=== PATIENT | female | born 1940 | race Caucasian/White ===

== ENCOUNTER 2017-09-22 12:36 | Emergency (ER) | payer OTHER ==
[2017-09-22 13:13] LABS: BASO % 0.4 % (0.0-1.0); EOS # 0.1 10^3/uL (0.0-0.50); EOS % 1.5 % (0.0-3.0); HEMATOCRIT 42.4 % (36.0-47.0); HEMOGLOBIN 14.5 g/dl (12.0-15.5); LYMPH # 1.8 10^3/uL (1.5-4.5); LYMPH % 22.6 % (24.0-44.0); MEAN CORPUSCULAR HGB CONC 34.2 g/dl (32.0-36.5); MEAN CORPUSCULAR VOLUME 90.8 fl (80.0-96.0); MONO # 0.6 10^3/uL (0.0-0.8); MONO % 7.4 % (0.0-5.0); NEUTROPHILS # 5.4 10^3/uL (1.8-7.7); NEUTROPHILS % 67.1 % (36.0-66.0); PLATELET COUNT, AUTOMATED 192 10^3/uL (150-450); RED BLOOD COUNT 4.67 10^6/uL (4.00-5.40); RED CELL DISTRIBUTION WIDTH 13.3 % (11.5-14.5); WHITE BLOOD COUNT 8.1 10^3/uL (4.0-10.0)
[2017-09-22] MEDS: ASPIRIN 81 MG CHEW TABLET PO (13:19)
[2017-09-22 13:33] LABS: ALBUMIN 4.3 GM/DL (3.2-5.2); ALBUMIN/GLOBULIN RATIO 1.05 (1.00-1.93); ALKALINE PHOSPHATASE 84 U/L (45-117); ALT/SGPT 55 U/L (12-78); ANION GAP 5 MEQ/L (8-16); AST/SGOT 46 U/L (7-37); BILIRUBIN,DIRECT 0.2 MG/DL (0.0-0.2); BILIRUBIN,TOTAL 0.7 MG/DL (0.2-1.0); BLOOD UREA NITROGEN 13 MG/DL (7-18); CALCIUM LEVEL 9.4 MG/DL (8.8-10.2); CARBON DIOXIDE LEVEL 32 MEQ/L (21-32); CHLORIDE LEVEL 103 MEQ/L (98-107); CPK CREATINE PHOSPHOKINASE 55 U/L (26-192); CREATININE FOR GFR 0.75 MG/DL (0.55-1.30); GLOMERULAR FILTRATION RATE > 60.0 (>39); GLUCOSE, FASTING 94 MG/DL (70-100); POTASSIUM SERUM 4.5 MEQ/L (3.5-5.1); SODIUM LEVEL 140 MEQ/L (136-145); TOTAL PROTEIN 8.4 GM/DL (6.4-8.2); TROPONIN I < 0.02 NG/ML (< 0.10)
[2017-09-22 13:34] LABS: CK-MB VALUE MASS 1.2 NG/ML (<3.6); MB/CK RELATIVE INDEX 2.18 (< OR =4); NT-PRO BNP 605 PG/ML (<450)
[2017-09-22 13:51] LABS: INR 1.97; PROTHROMBIN TIME 23.1 SECONDS (12.4-14.5)
[2017-09-22 14:35] LABS: DIGOXIN LEVEL 1.8 NG/ML (0.5-2.0)
[2017-09-22 17:01] LABS: CK-MB VALUE MASS < 1.0 NG/ML (<3.6); CPK CREATINE PHOSPHOKINASE 54 U/L (26-192); MB/CK RELATIVE INDEX 1.85 (< OR =4); TROPONIN I < 0.02 NG/ML (< 0.10)
== END 2017-09-22 18:00 | disposition home or self-care (01) ==
LOC: M ED 12:36
DX: R07.89 Other chest pain (principal); R06.02 Shortness of breath; I10 Essential (primary) hypertension; I48.91 Unspecified atrial fibrillation; E78.5 Hyperlipidemia, unspecified; K21.9 Gastro-esophageal reflux disease without esophagitis; Z95.1 Presence of aortocoronary bypass graft; Z88.8 Allergy status to other drugs, medicaments and biological substances; Z79.899 Other long term (current) drug therapy; Z79.01 Long term (current) use of anticoagulants
CPT/HCPCS: 71045

== ENCOUNTER 2018-08-09 13:45 | Observation (INO) | payer MEDICARE, OTHER ==
[~2018-08-09] VITALS: Ht 157.5 cm; Wt 59.1 kg
[~2018-08-09 13:45] MED LIST: /WARF2TA; ACET650S; ACET65TA; ALDA25TA2; ATEN100T PO; ATEN25TA; CALCCHW12; CHOL4POW; COUMADIN; DIGO0.25 PO; FAMO10TA5; FURO20TA2; KLOR10TA; LANO0.1211; LASI20TA; LISI40TA; MILKSUS; PAIN325T; PANT40TA3 PO; PEPC20TA2; POTA10CA32 PO; RANI300T PO; SOTA160T; SPIR-10; SPIRPOW; THERGRAN; VALS1TAB47; WARF-20
[2018-08-09] MEDS ORDERED: SPIR-10 PO (14:03)
[2018-08-09] MEDS ORDERED: COUM6TAB PO ×3 (14:03→14:10)
[2018-08-09] MEDS ORDERED: [UNRECOGNIZED DRUG - CODE] TOP (14:10)
[2018-08-09] MEDS ORDERED: PENI500T PO (14:10)
[2018-08-09] MEDS ORDERED: VITA200016 PO (14:10)
[2018-08-09] MEDS ORDERED: CHOL4PKT PO (14:10)
[2018-08-09] MEDS ORDERED: LOSA100T50 PO (14:10)
[2018-08-09 14:35] LABS: BASO % 0.3 % (0.0-1.0); EOS # 0.1 10^3/uL (0.0-0.50); EOS % 0.6 % (0.0-3.0); HEMATOCRIT 39.3 % (36.0-47.0); HEMOGLOBIN 13.4 g/dl (12.0-15.5); LYMPH # 1.8 10^3/uL (1.5-4.5); LYMPH % 19.8 % (24.0-44.0); MEAN CORPUSCULAR HEMOGLOBIN 30.4 pg (27.0-33.0); MEAN CORPUSCULAR HGB CONC 34.1 g/dl (32.0-36.5); MEAN CORPUSCULAR VOLUME 89.1 fl (80.0-96.0); MONO # 0.9 10^3/uL (0.0-0.8); MONO % 9.6 % (0.0-5.0); NEUTROPHILS # 6.2 10^3/uL (1.8-7.7); PLATELET COUNT, AUTOMATED 200 10^3/uL (150-450); RED BLOOD COUNT 4.41 10^6/uL (4.00-5.40); WHITE BLOOD COUNT 8.9 10^3/uL (4.0-10.0)
--- NOTE | 2018-08-09 14:42 | REP ---
Clinical: Acute chest pain . Comparison: 09/22/2017 . Findings: The mediastinum and cardiac silhouette are stable and within normal limits for portable technique. The lung hsieh demonstrate chronic-appearing changes without acute consolidation, effusion, or pneumothorax. Skeletal structures are intact. Impression: No acute cardiopulmonary process appreciated. Electronically Signed by Ricardo Pelayo MD 08/09/2018 02:33 P
[2018-08-09 14:47] LABS: INR 1.95; PROTHROMBIN TIME 22.6 SECONDS (12.1-14.4)
[2018-08-09] MEDS ORDERED: COUM1TAB14 PO ×2 (15:00)
[2018-08-09] MEDS ORDERED: VITA100066 PO (15:00)
[2018-08-09] MEDS ORDERED: CALC600T7 PO (15:00)
[2018-08-09] MEDS ORDERED: FURO40TA2 PO (15:00)
[2018-08-09] MEDS ORDERED: ACET-683 PO (15:00)
[2018-08-09] MEDS ORDERED: CENTCHW3 PO (15:00)
[2018-08-09] MEDS ORDERED: VITA100067 PO ×2 (15:00→15:05)
[2018-08-09] MEDS ORDERED: FIBE625T PO (15:01)
[2018-08-09] MEDS ORDERED: FIBE500T4 PO (15:01)
[2018-08-09 15:19] LABS: ALT/SGPT 52 U/L (12-78); BILIRUBIN,DIRECT 0.2 MG/DL (0.0-0.2); BILIRUBIN,TOTAL 0.6 MG/DL (0.2-1.0); BLOOD UREA NITROGEN 17 MG/DL (7-18); CALCIUM LEVEL 9.3 MG/DL (8.8-10.2); CARBON DIOXIDE LEVEL 27 MEQ/L (21-32); CHLORIDE LEVEL 104 MEQ/L (98-107); CPK CREATINE PHOSPHOKINASE 44 U/L (26-192); CREATININE FOR GFR 1.02 MG/DL (0.55-1.30); DIGOXIN LEVEL 1.8 NG/ML (0.5-2.0); GLOMERULAR FILTRATION RATE 55.9 (>39); GLUCOSE, FASTING 107 MG/DL (70-100); LIPASE 184 U/L (73-393); MAGNESIUM LEVEL 2.1 MG/DL (1.8-2.4); NT-PRO BNP 517 PG/ML (<450); POTASSIUM SERUM 4.9 MEQ/L (3.5-5.1); SODIUM LEVEL 138 MEQ/L (136-145); TOTAL PROTEIN 7.3 GM/DL (6.4-8.2); TROPONIN I < 0.02 NG/ML (< 0.10)
[2018-08-09] MEDS ORDERED: ACETAMINOPHEN 500 MG TAB PO PRN (16:15)
--- NOTE | 2018-08-09 16:50 | HPE ---
DATE OF ADMISSION: 08/09/2018 78-year-old male with a past medical history of atrial fibrillation, hypertension, who presents to the emergency room with dizziness and weakness for the last 72 hours. No significant chest pain, palpitations, shortness of breath. She came for evaluation. In the emergency room, she was found to be in atrial fibrillation with slow ventricular response with a heart rate in the 40s. Dr. Quintanilla was called and he was made aware of the patient. Recommendations were to cut her atenolol in half and observe the heart rate for the next 24 hours, and we will do so. At this time, the patient is resting comfortably. Her heart rate is now in atrial fibrillation and in the 70s. She will be admitted for further management. PAST MEDICAL HISTORY: Again, past medical history of: 1. Hypertension. 2. Atrial fibrillation. 3. Osteoporosis. ALLERGIES: She has drug allergies to VERAPAMIL and [id number]-YICIXM (TARIQ) INHIBITOR . FAMILY HISTORY: Noncontributory. SOCIAL HISTORY: The patient denies tobacco, alcohol, or illicit drugs. MEDICATIONS: She takes at home: - Tylenol as needed - atenolol 100 mg by mouth twice a day - calcium 625 mg by mouth daily - calcium with vitamin D one tablet by mouth daily - cholestyramine 4 grams by mouth at night - digoxin 250 mcg by mouth daily - fluocinonide applied to both legs at night - Lasix 20 mg by mouth daily - losartan 100 mg by mouth at bedtime - multivitamin one tablet by mouth daily - pantoprazole 40 mg by mouth daily - penicillin 500 mg by mouth four times a day, which is on day #8 of 10 - potassium chloride 10 mEq by mouth at bedtime - ranitidine 300 mg by mouth at bedtime - spironolactone 12.5 mg by mouth daily - vitamin D 1000 units by mouth daily - warfarin 6 mg by mouth four times a week - warfarin 8 mg by mouth three times a week REVIEW OF SYSTEMS: Negative for all ten major systems except what is mentioned in the history of present illness. PHYSICAL EXAMINATION: VITAL SIGNS: Blood pressure 167/70, heart rate is 44 and irregular, respiratory rate is 18, temperature 97.2, oxygen saturation is 97% on room air. Head is atraumatic, normocephalic. Neck is supple with no jugular venous distention (JVD). Lungs clear to auscultation. S1, S2 audible. No murmurs appreciated. Abdomen is soft. Positive bowel sounds. No pedal edema. Skin is intact. Neurologic examination, the patient is awake, alert and oriented times three. LABORATORIES: WBC 8.94, hemoglobin 13.4, hematocrit 39.3, platelets 200,000. Sodium 138, potassium 4.9, chloride 104, CO2 of 27, BUN 17, creatinine 1.2, glucose 107, lipase 184, TSH 1.98, digoxin level 1.8. 12-lead electrocardiogram (EKG) showed no acute ST-T abnormalities. IMPRESSION: 1. Atrial fibrillation with slow ventricular response. PLAN: The patient is to be admitted to the medical/surgical floor with telemetry. We will cut the atenolol from 100 to 50 mg twice a day and monitor heart rate. In the meantime, we will continue her other preadmission medications. We will continue his care on the medical/surgical floor.
[2018-08-09] MEDS ORDERED: WARFARIN SOD 3 MG TAB PO SCH (17:00)
[2018-08-09] MEDS ORDERED: VITAMIN D 1,000 INTERNATIONAL UNITS TABLET PO SCH (21:00)
[2018-08-09] MEDS ORDERED: POTASSIUM CHLORIDE 10 MEQ SR TABLET PO SCH (21:00)
[2018-08-09] MEDS ORDERED: LOSARTAN 50 MG TAB PO SCH (21:00)
[2018-08-09] MEDS ORDERED: CHOLESTYRAMINE 4 GM PWD PKT PO SCH (21:00)
[2018-08-09] MEDS ORDERED: FAMOTIDINE 20 MG TAB PO SCH (21:00)
[2018-08-09] MEDS: ATENOLOL 50 MG TAB PO SCH (21:17)
[2018-08-10 05:00] VITALS: BP 139/61
[2018-08-10 07:56] LABS: INR 2.04; PROTHROMBIN TIME 23.4 SECONDS (12.1-14.4)
[2018-08-10 08:03] LABS: BLOOD UREA NITROGEN 11 MG/DL (7-18); CALCIUM LEVEL 8.7 MG/DL (8.8-10.2); CARBON DIOXIDE LEVEL 28 MEQ/L (21-32); CHLORIDE LEVEL 105 MEQ/L (98-107); CREATININE FOR GFR 0.65 MG/DL (0.55-1.30); GLOMERULAR FILTRATION RATE > 60.0 (>39); GLUCOSE, FASTING 102 MG/DL (70-100); POTASSIUM SERUM 4.3 MEQ/L (3.5-5.1); SODIUM LEVEL 141 MEQ/L (136-145)
[2018-08-10 08:18] LABS: BASO % 0.3 % (0.0-1.0); EOS # 0.1 10^3/uL (0.0-0.50); EOS % 1.3 % (0.0-3.0); HEMATOCRIT 38.3 % (36.0-47.0); HEMOGLOBIN 12.9 g/dl (12.0-15.5); LYMPH # 1.9 10^3/uL (1.5-4.5); LYMPH % 27.1 % (24.0-44.0); MEAN CORPUSCULAR HEMOGLOBIN 30.3 pg (27.0-33.0); MEAN CORPUSCULAR HGB CONC 33.7 g/dl (32.0-36.5); MEAN CORPUSCULAR VOLUME 89.9 fl (80.0-96.0); MONO # 0.7 10^3/uL (0.0-0.8); MONO % 9.2 % (0.0-5.0); NEUTROPHILS # 4.3 10^3/uL (1.8-7.7); NEUTROPHILS % 61.4 % (36.0-66.0); PLATELET COUNT, AUTOMATED 180 10^3/uL (150-450); RED BLOOD COUNT 4.26 10^6/uL (4.00-5.40); WHITE BLOOD COUNT 7.1 10^3/uL (4.0-10.0)
[2018-08-10 08:19] LABS: ALBUMIN 3.5 GM/DL (3.2-5.2); ALT/SGPT 45 U/L (12-78); BILIRUBIN,TOTAL 0.7 MG/DL (0.2-1.0)
[2018-08-10 08:48] VITALS: BP 155/67
[2018-08-10] MEDS: ATENOLOL 50 MG TAB PO SCH (08:48)
[2018-08-10] MEDS ORDERED: FUROSEMIDE 20 MG TAB PO SCH (09:00)
[2018-08-10] MEDS ORDERED: VITAMIN D 1,000 INTERNATIONAL UNITS TABLET PO SCH (09:00)
[2018-08-10] MEDS ORDERED: DIGOXIN 0.25 MG TAB PO SCH (09:00)
[2018-08-10] MEDS ORDERED: MULTIVITAMINS/MINERALS THERAP 1 TAB PO SCH (09:00)
[2018-08-10] MEDS ORDERED: CALCIUM/VITAMIN D 500 MG TAB PO SCH (09:00)
[2018-08-10] MEDS ORDERED: PANTOPRAZOLE 40MG TAB (PROTONIX) PO SCH (09:00)
[2018-08-10] MEDS ORDERED: SPIRONOLACTONE 12.5MG PER 1/2 TABLET PO SCH (09:00)
[2018-08-10] MEDS ORDERED: ATEN50TA2 PO (09:03)
--- NOTE | 2018-08-10 15:16 | DS.PDOC ---
Discharge Summary General Date of Admission Aug 09, 2018 at 16:16 Date of Discharge 08/10/2018 Discharge Summary PROCEDURES PERFORMED DURING STAY: [None]. ADMITTING DIAGNOSES / DISCHARGE DIAGNOSES: s/p Dizziness / Weakness - likely 2/2 symptomatic bradycardia - likely 2/2 medications A. fib with slow ventricular response Therapeutic INR while on Coumadin HTN Osteoporosis DVT prophylaxis COMPLICATIONS/CHIEF COMPLAINT: Dizziness HISTORY OF PRESENT ILLNESS / HOSPITAL COURSE: Patient is a 78-year-old female with a PMHx of A. fib (on Coumadin), HTN, who presented to the ER with complaints of dizziness and weakness over the last 72 hours. Upon arrival. Patient denied chest pain, palpitations or shortness of breath. Prior to arrival. Patient had measured her heart rate and was found to be 45. Upon arrival to the emergency room, patient's heart rate was found to be in the 40s and in A. fib with slow ventricular response. Case was discussed with Dr. Quintanilla who had suggested that the patient's Atenolol dose be reduced by 50%. After making those changes within the next 24 hours patient's heart rate has been in the 70s. . She is noted that all her symptoms have resolved. She no l onger experiences any dizziness or weakness and is anxious to get home. Patient has been given new instructions for her rate control medications. She's been advised to follow-up with her primary care provider as well as Dr. Quintanilla within the next 7 days, she's been advised to remain compliant with treatment plan the medications and return to ER if she experiences any problems. DISCHARGE MEDICATIONS: Please see below. ALLERGIES: Please see below. PHYSICAL EXAMINATION ON DISCHARGE: Vitals (See below) General: Lying in bed, no acute distress, comfortable, AAOx3 HEENT: NC, AT CVS: IrIr, +S1S2 Lungs: Fair air entry b/l, no evidence of wheezing, rales or rhonchi Abdomen: Soft, ND, NT Extremities: - Edema, - Calf tenderness LABORATORY DATA: Please see below. IMAGING: CXR 08/09: No acute cardiopulmonary process appreciated. PROGNOSIS: Fair ACTIVITY: [As tolerated]. DIET: Return to prior diet DISCHARGE PLAN: Follow up with Rhianna Shafer and Dr. Quintanilla within 7 days. Remain compliant with treatment plan and medications. Return to the ER if you experience any problems. DISPOSITION: Home, Self-Care. DISCHARGE CONDITION: [Stable]. TIME SPENT ON DISCHARGE: Greater than [35] minutes. Vital Signs/I&Os Vital Signs Date Time Temp Pulse Resp B/P (MAP) Pulse Ox O2 Delivery O2 Flow Rate FiO2 08/10/18 08:48 88 155/67 08/10/18 05:45 16 96 Room Air 08/09/18 13:45 97.2 Laboratory Data Labs 24H Laboratory Tests 2 08/10/18 07:04: Immature Granulocyte % (Auto) 0.7, White Blood Count 7.1, Red Blood Count 4.26, Hemoglobin 12.9, Hematocrit 38.3, Mean Corpuscular Volume 89.9, Mean Corpuscular Hemoglobin 30.3, Mean Corpuscular Hemoglobin Concent 33.7, Red Cell Distribution Width 13.9, Platelet Count 180, Neutrophils (%) (Auto) 61.4, Lymphocytes (%) (Auto) 27.1, Monocytes (%) (Auto) 9.2H, Eosinophils (%) (Auto) 1.3, Basophils (%) (Auto) 0.3, Neutrophils # (Auto) 4.3, Lymphocytes # (Auto) 1.9, Monocytes # (Auto) 0.7, Eosinophils # (Auto) 0.1, Basophils # (Auto) 0.0, Nucleated Red Blood Cells % (auto) 0.0 08/10/18 07:09: Anion Gap 8, Glomerular Filtration Rate > 60.0, Blood Urea Nitrogen 11, Creatinine 0.65, Sodium Level 141, Potassium Level 4.3, Chloride Level 105, Carbon Dioxide Level 28, Calcium Level 8.7L, Aspartate Amino Transf (AST/SGOT) 35, Alanine Aminotransferase (ALT/SGPT) 45, Alkaline Phosphatase 46, Total [place] 0.7, Total Protein 7.0, Albumin 3.5, Magnesium Level 2.0, Albumin/Globulin Ratio 1.00 08/10/18 07:28: Prothrombin Time 23.4H, Prothromb Time International Ratio 2.04 CBC/BMP Laboratory Tests 08/10/18 07:04 Red Blood Count 4.26, Mean Corpuscular Volume 89.9, Mean Corpuscular Hemoglobin 30.3, Mean Corpuscular Hemoglobin Concent 33.7, Red Cell Distribution Width 13.9, Neutrophils (%) (Auto) 61.4, Lymphocytes (%) (Auto) 27.1, Monocytes (%) (Auto) 9.2 H, Eosinophils (%) (Auto) 1.3, Basophils (%) (Auto) 0.3, Neutrophils # (Auto) 4.3, Lymphocytes # (Auto) 1.9, Monocytes # (Auto) 0.7, Eosinophils # (Auto) 0.1, Basophils # (Auto) 0.0 08/10/18 07:09 Calcium Level 8.7 L, Aspartate Amino Transf (AST/SGOT) 35, Alanine Aminotransferase (ALT/SGPT) 45, Alkaline Phosphatase 46, Total Bilirubin 0.7, Total Protein 7.0, Albumin 3.5 Discharge Medications Scheduled (Fluocinonide Emulsified) 0.05 % Cre, 1 APLCT TOP QHS, (Reported) PT APPLIES TO PATCHES ON ANKLES AND LEFT LEG Atenolol (Atenolol) 50 Mg Tab, 50 MG PO BID Calcium Polycarbophil (Fibercon) 625 Mg Tab, 625 MG PO DAILY, (Reported) Calcium/Vitamin D (Calcium + D3 600-200 mg-Unit) 1 Tab Tab, 1 TAB PO DAILY, (Reported) Cholestyramine (Prevalite) 4 Gm Pack, 4 GR PO QHS, (Reported) Digoxin (Digoxin) 250 Mcg Tab, 250 MCG PO DAILY, (Reported) Furosemide (Furosemide) 40 Mg Tab, 20 MG PO DAILY, (Reported) Losartan Potassium (Losartan Potassium) 100 Mg Tab, 100 MG PO QHS, (Reported) Multivitamins (Centrum Silver) 1 Chw Chw, 1 TAB PO DAILY, (Reported) Pantoprazole Sodium (Pantoprazole Sodium) 40 Mg Tab, 40 MG PO DAILY, (Reported) Penicillin V Potassium (Penicillin V Potassium) 500 Mg Tab, 500 MG PO QID, (Reported) FILLED ON 08/01/18 FOR 10 DAY SUPPLY Potassium Chloride (Potassium Chloride ER) 10 Meq Cap, 10 MEQ PO QHS, (Reported) Ranitidine HCl (Ranitidine HCl) 300 Mg Tab, 300 MG PO QHS, (Reported) Spironolactone (Spironolactone) 25 Mg Tab, 12.5 MG PO DAILY, (Reported) Vitamin D (Vitamin D) 1,000 Unit Cap, 1,000 UNIT PO DAILY, (Reported) PT TAKES 1QAM AND 2QHS Vitamin D (Vitamin D) 1,000 Unit Cap, 2,000 UNIT PO QHS, (Reported) PT TAKES 1QAM AND 2QHS Warfarin Sod (Coumadin) 4 Mg Tab, 6 MG PO 4XWK, (Reported) PT TAKES ON SUNDAY, SUNDAY, SUNDAY, AND SUNDAY Warfarin Sod (Coumadin) 4 Mg Tab, 8 MG PO 3XW, (Reported) PT TAKES ON SUNDAY, SUNDAY, AND SUNDAY Scheduled PRN Acetaminophen (Acetaminophen Extra Stren) 500 Mg Tab, 500 MG PO Q4H PRN for PAIN, (Reported) Allergies Coded Allergies: Verapamil (Verified Allergy, Unknown, 09/10/12) TARIQ Inhibitors (Verified Adverse Reaction, Mild, COUGH, 09/10/12) ALEXIS REAL MD Aug 10, 2018 15:16
[2018-08-10] MEDS ORDERED: WARFARIN SOD 4 MG TAB PO SCH (17:00)
--- NOTE | 2018-08-10 17:51 | ECGEPIP ---
Stationary ECG Study [facility] - ED Test Date: 2018-08-09 Pat Name: SELMA MARTINEZ Department: Room: - Gender: F Licensed Tax Consultant: MARGOT : [id number] Requested By: Tori Lr Order Number: [id number] Reading MD: Sarah Mercado Measurements Intervals [place] Rate: 45 P: MT: 0 QRS: 83 QRSD: 85 T: 25 QT: 403 QTc: 352 Interpretive Statements ATRIAL FIBRILLATION WITH SLOW VENTRICULAR RESPONSE NONSPECIFIC ST & T-WAVE ABNORMALITY ABNORMAL RHYTHM ECG DECREASED R WAVE PROGRESSION CW 09/22/[address] T WAVE CHANGES Electronically Signed On 08-10-2018 17:51:10 EST by Sarah Mrecado
== END 2018-08-10 11:00 | disposition home or self-care (01) ==
LOC: M ED 13:45 → M ED INP 16:16
PROVIDERS: ADMIT Internal Medicine; ATTEND Internal Medicine
DX: R42 Dizziness and giddiness (principal); R53.1 Weakness; I48.0 Paroxysmal atrial fibrillation; Z79.01 Long term (current) use of anticoagulants; I10 Essential (primary) hypertension; M81.0 Age-related osteoporosis without current pathological fracture; Z79.899 Other long term (current) drug therapy; Z88.8 Allergy status to other drugs, medicaments and biological substances
CPT/HCPCS: 36415; 71045; 80048; 80053; 80076; 80162; 82550; 82553; 83690; 83735; 83880; 84439; 84443; 84484; 85025; 85610; 93005; 93041; 94760; 99285; G0378

== ENCOUNTER → 2021-11-22 | Outpatient (CLI) | payer MEDICARE ==
[~2021-11-22] MED LIST changes: -/WARF2TA; +ACET-683 PO; +ATEN50TA2 PO; +CALC-212 PO; +CENTCHW3 PO; +CHOL239.; +CHOL4PKT PO; -CHOL4POW; +COUM1TAB16; +COUM4TAB8 PO; +COUM6TAB10 PO; -DIGO0.25 PO; +DIGO0.253 PO; +FIBE500T4 PO; +FIBE625T PO; +FURO40TA2 PO; +LOSA100T45 PO; +METHACHOLINE KIT (J7674) INH ONE; +PANT40TA29 PO; -PANT40TA3 PO; +PENI500T PO; +SPIR-10 PO; -VALS1TAB47; +VALS1TAB67; +VITA100066 PO; +VITA100067 PO; +VITA200016 PO; +[UNRECOGNIZED DRUG - CODE] TOP
== END ==
LOC: M CARPUL 08:24
PROVIDERS: ATTEND Internal Medicine Pulmonary Disease
DX: J45.30 Mild persistent asthma, uncomplicated (principal)
CPT/HCPCS: 94070; 95070; J7674

== ENCOUNTER → 2022-09-28 | Outpatient (CLI) | payer MEDICARE ==
[~2022-09-28] MED LIST changes: -METHACHOLINE KIT (J7674) INH ONE; -POTA10CA32 PO; +POTA10CA33 PO
== END ==
LOC: M RAD 12:03
PROVIDERS: ATTEND Surgery Vascular Surgery
DX: I87.2 Venous insufficiency (chronic) (peripheral) (principal)

== ENCOUNTER 2022-12-25 09:36 | Day surgery (SDC) | payer MEDICARE ==
[~2022-12-25] VITALS: Ht 157.5 cm; Wt 62.7 kg
[~2022-12-25 09:36] MED LIST changes: +BISO10TA14 PO; +CALC500C16 PO; +ELIQ2.5T PO; -LOSA100T45 PO; +LOSA100T46 PO; +META0.52 PO; -POTA10CA33 PO; +POTA10CA60 PO; +PROBCAP14 PO; +ceFAZolin SOD 2 GM in IV 1 EA IV ONE
[2022-12-25] MEDS ORDERED: LR 1,000 ML IV SCH ×2 (11:10→12:25)
[2022-12-25] MEDS ORDERED: ISOVUE-300 61% 100ML VIAL As Ordered ONE (11:50)
[2022-12-25] MEDS ORDERED: fentaNYL 100 MCG/2 ML INJECTION As Ordered ONE (11:55)
[2022-12-25] MEDS ORDERED: propofoL 200 MG/20 ML VIAL As Ordered ONE (11:55)
[2022-12-25] MEDS ORDERED: ONDANSETRON 4MG 2ML VIAL As Ordered ONE (11:55)
[2022-12-25] MEDS ORDERED: MIDAZOLAM INJ 2MG/2ML VIAL As Ordered ONE (11:55)
[2022-12-25] MEDS ORDERED: LIDOCAINE 2% 100MG/5ML SDV (FOR ANES.) As Ordered ONE (11:55)
[2022-12-25] MEDS ORDERED: ACETAMINOPHEN 1000MG 100ML IV BAG As Ordered ONE (12:02)
[2022-12-25] MEDS ORDERED: MACR100C43 PO (12:20)
[2022-12-25] MEDS ORDERED: PYRI1TAB5 PO (12:20)
[2022-12-25] MEDS ORDERED: OXYB5TAB10 PO (12:20)
[2022-12-25] MEDS ORDERED: oxyCODONE 5MG TAB PO PRN (12:25)
[2022-12-25] MEDS ORDERED: ONDANSETRON 4MG 2ML VIAL IV PRN (12:25)
[2022-12-25] MEDS ORDERED: fentaNYL 100 MCG/2 ML INJECTION IV PRN (12:25)
[2022-12-25 14:10] VITALS: BP 158/75; TEMP 97.2; O2SAT 97
== END 2022-12-25 14:15 | disposition home or self-care (01) ==
LOC: M SDC 09:36
PROVIDERS: ATTEND Urology
DX: N20.1 Calculus of ureter (principal); I48.91 Unspecified atrial fibrillation; I10 Essential (primary) hypertension; K58.9 Irritable bowel syndrome, unspecified; K21.9 Gastro-esophageal reflux disease without esophagitis; M19.90 Unspecified osteoarthritis, unspecified site; M81.0 Age-related osteoporosis without current pathological fracture; J44.9 Chronic obstructive pulmonary disease, unspecified; Z91.040 Latex allergy status; Z88.8 Allergy status to other drugs, medicaments and biological substances; Z79.899 Other long term (current) drug therapy; Z79.01 Long term (current) use of anticoagulants
CPT/HCPCS: 52332; 52351; 74420; C1769; C2617; J0131; J0690; J1100; J2250; J2405; J3010; Q9967

== ENCOUNTER → 2023-09-27 | Outpatient (CLI) | payer MEDICARE ==
[~2023-09-27] MED LIST changes: +MACR100C43 PO; +OXYB5TAB14 PO; +PYRI1TAB5 PO; -ceFAZolin SOD 2 GM in IV 1 EA IV ONE
== END ==
LOC: M WHC 12:20
PROVIDERS: ATTEND Nurse Practitioner Family
DX: I83.813 Varicose veins of bilateral lower extremities with pain (principal)

== ENCOUNTER → 2024-08-04 | Day surgery (SDC) | payer MEDICARE ==
[~2024-08-04] VITALS: Ht 157.5 cm; Wt 57.2 kg
[~2024-08-04] MED LIST changes: +ASPI81TA26 PO; +LR 1,000 ML IV SCH; +MIDAZOLAM INJ 2MG/2ML VIAL As Ordered ONE; -POTA10CA60 PO; +POTA10CA70 PO; +fentaNYL 100 MCG/2 ML INJECTION As Ordered ONE
[2024-08-04] MEDS: PHENYLEPHRINE 2.5% OPHTH SOL 2ML OS SCH (09:16)
[2024-08-04] MEDS: TETRACAINE 0.5% OPHTH SOLN 4ML OS SCH (09:16)
[2024-08-04] MEDS: CYCLOPENTOLATE 1% OPHTH SOLN 2ML BTL OS SCH (09:16)
[2024-08-04] MEDS: FLURBIPROFEN 0.03% OPHTH SOLN 2.5 ML OS SCH (09:16)
[2024-08-04] MEDS: CEFUROXIME 1MG/0.1ML INTRACAMERAL INJ As Ordered ONE (11:25)
[2024-08-04] MEDS: LIDOCAINE 1% SDV 5ML VIAL As Ordered ONE (11:25)
[2024-08-04 11:44] VITALS: BP 167/78; TEMP 97.6; O2SAT 96
== END | disposition home or self-care (01) ==
LOC: M SDC 08:45
PROVIDERS: ATTEND Ophthalmology
DX: H25.12 Age-related nuclear cataract, left eye (principal); Z88.8 Allergy status to other drugs, medicaments and biological substances; Z91.040 Latex allergy status; Z79.899 Other long term (current) drug therapy
CPT/HCPCS: 66984; J0697; J2250; J3010; V2632

== ENCOUNTER 2024-09-29 10:41 | Day surgery (SDC) | payer MEDICARE ==
[~2024-09-29] VITALS: Ht 157.5 cm; Wt 57.6 kg
[~2024-09-29 10:41] MED LIST changes: +BISO10TA13 PO
[2024-09-29] MEDS: CYCLOPENTOLATE 1% OPHTH SOLN 2ML BTL OD SCH (11:37)
[2024-09-29] MEDS: TETRACAINE 0.5% OPHTH SOLN 4ML OD SCH (11:37)
[2024-09-29] MEDS: FLURBIPROFEN 0.03% OPHTH SOLN 2.5 ML OD SCH (11:37)
[2024-09-29] MEDS: PHENYLEPHRINE 2.5% OPHTH SOL 2ML OD SCH (11:37)
[2024-09-29] MEDS: LIDOCAINE 1% SDV 5ML VIAL As Ordered ONE (12:56)
[2024-09-29] MEDS: CEFUROXIME 1MG/0.1ML INTRACAMERAL INJ As Ordered ONE (12:57)
[2024-09-29 13:15] VITALS: BP 126/67; TEMP 97; O2SAT 96
== END 2024-09-29 13:35 | disposition home or self-care (01) ==
LOC: M SDC 10:41
PROVIDERS: ATTEND Ophthalmology
DX: H25.11 Age-related nuclear cataract, right eye (principal); Z88.8 Allergy status to other drugs, medicaments and biological substances; Z91.040 Latex allergy status; Z79.899 Other long term (current) drug therapy; Z98.42 Cataract extraction status, left eye
CPT/HCPCS: 66984; J0697; J2250; J3010; V2632